=== PATIENT | male | born 2000 | race Caucasian/White ===

== ENCOUNTER 2024-02-26 15:14 | Emergency (ER) | payer SELFPAY ==
[~2024-02-26] VITALS: Ht 177.8 cm; Wt 77.3 kg
[2024-02-26 15:22] VITALS: TEMP 98
[2024-02-26] MEDS ORDERED: PREDNISONE10 MG PO (18:37)
[2024-02-26 18:48] VITALS: BP 124/73; PULSE 60
== END 2024-02-26 18:48 | disposition home or self-care (01) ==
LOC: COL.ER 15:14
DX: L23.7 Allergic contact dermatitis due to plants, except food (principal)